=== PATIENT | female | born 1990 | race Two or more races ===

== ENCOUNTER 2016-09-05 20:56 | Emergency (ER) | payer OTHER ==
[2016-09-05] MEDS ORDERED: HYDROCODONE/ACETAMINOPHEN 5/325MG TABLET ONE ×2 (21:37)
[2016-09-05] MEDS ORDERED: CEPHALEXIN 500 MG CAPSULE ONE (21:37)
== END 2016-09-05 22:00 | disposition home or self-care (01) ==
LOC: ED 20:56
DX: L03.116 Cellulitis of left lower limb (principal)
CPT/HCPCS: 99283 ×2; A9270 ×3